=== PATIENT | male | born 1990 | race Hispanic/Latino ===

== ENCOUNTER 2018-05-08 16:55 | Emergency (ER) | payer SELFPAY | END 2018-05-08 18:47 | disposition home or self-care (01) | LOC: ERS 16:55 | DX: M65.4 Radial styloid tenosynovitis [de Quervain] (principal); F17.210 Nicotine dependence, cigarettes, uncomplicated | CPT/HCPCS: 99283 ==

== ENCOUNTER 2019-04-24 07:21 | Emergency (ER) | payer BC | END 2019-04-24 08:32 | disposition home or self-care (01) | LOC: ERS 07:21 | DX: K08.89 Other specified disorders of teeth and supporting structures (principal); F17.210 Nicotine dependence, cigarettes, uncomplicated | CPT/HCPCS: 99282 ==